=== PATIENT | female | born 1980 ===

== ENCOUNTER → 2020-10-23 | Outpatient (CLI) | payer OTHER | END | disposition home or self-care (01) | LOC: PRENATAL 14:12 | PROVIDERS: ATTEND Obstetrics & Gynecology Maternal & Fetal Medicine | DX: O35.0XX1 Maternal care for (suspected) central nervous system malformation in fetus, fetus 1 (principal); O09.511 Supervision of elderly primigravida, first trimester; O99.891 Other specified diseases and conditions complicating pregnancy; O24.311 Unspecified pre-existing diabetes mellitus in pregnancy, first trimester; O36.80X1 Pregnancy with inconclusive fetal viability, fetus 1; Z36.89 Encounter for other specified antenatal screening; Z3A.12 12 weeks gestation of pregnancy ==